=== PATIENT | male | born 1950 | race Caucasian/White ===

== ENCOUNTER 2018-09-19 18:21 | Inpatient (IN) | payer MEDICARE, OTHER ==
[~2018-09-19] VITALS: Ht 182.9 cm; Wt 119.7 kg
[2018-09-19] MEDS ORDERED: NS IV 1000 ML 1,000 ML IV STA ×2 (18:40→19:54)
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
[2018-09-19 18:48] LABS: HEMOGLOBIN 13.4 G/DL (13.3-17.7); WHITE BLOOD COUNT 10.1 10^3/uL (4.3-11.0)
[2018-09-19 19:06] LABS: INR 0.9 (0.8-1.4); PROTHROMBIN TIME PATIENT 12.3 SEC (12.2-14.7)
[2018-09-19 19:12] LABS: CHLORIDE 99 MMOL/L (98-107); POTASSIUM 4.5 MMOL/L (3.6-5.0); SODIUM 137 MMOL/L (135-145)
[2018-09-19 19:13] LABS: ALANINE AMINOTRANSFERASE 25 U/L (0-55); ALKALINE PHOSPHATASE 68 U/L (40-136); BILIRUBIN,TOTAL 0.4 MG/DL (0.1-1.0); BUN/CREATININE RATIO 17; CALCIUM 9.6 MG/DL (8.5-10.1); CARBON DIOXIDE 22 MMOL/L (21-32); CREATININE SERUM 1.45 MG/DL (0.60-1.30); GFR ESTIMATED 49; GLUCOSE 185 MG/DL (70-105); MAGNESIUM 1.9 MG/DL (1.8-2.4)
[2018-09-19 19:14] LABS: ALBUMIN 4.6 GM/DL (3.2-4.5); TOTAL PROTEIN 7.7 GM/DL (6.4-8.2)
--- NOTE | 2018-09-19 19:28 | Diagnostic Imaging Report ---
INDICATION: Syncope and irregular heart rate. COMPARISON: Prior examination from 09/19/2018. EXAMINATION: Single view of the chest was obtained. FINDINGS: There is cardiomegaly. The lungs are clear. There is no pleural effusion or pneumothorax. The mediastinum is unremarkable. IMPRESSION: 1. No acute cardiopulmonary abnormality. 2. Cardiomegaly. Dictated by: Dictated on workstation # [id number]
[2018-09-19] MEDS ORDERED: ASPIRIN 81 MG CHEW (CHILDREN'S ASA) PO STA (19:53)
--- NOTE | 2018-09-19 20:03 | NUR ---
pt states he took 650 mg of aspirin at around 1815, Dr Gong notified and baby aspirin dcd.
--- NOTE | 2018-09-19 20:22 | NUR ---
ems here, pt loaded on cot and secured.
--- OUTSIDE RECORDS SUMMARY | 2018-09-19 20:50 | XMS REPORT ---
Author Author [facility] Medical Staff Organization [place] [employer] [facility] Address [address], [place] [address] Phone [phone] Summary purpose TRANSITION OF CARE AUTO GENERATION Chief Complaint and Reason for Visit No authorized Reason for Visit (Admitting Diagnosis) is available for this visit . Problem list No authorized problems tracked for continuity of care are available for this vis it. Encounters No authorized problems tracked for encounter diagnoses are available for this vi sit. Medications No medications recorded for this patient visit Allergies, adverse reactions, alerts Allergen Category Ingredient Status Reaction Severity Onset No known drug allergies No known drug allergies No known drug allergies Confirmed or Verified Immunizations No immunizations recorded for this patient visit Relevant diagnostic tests and/or laboratory data No authorized results are available for this patient visit History of procedures Procedure Code Code Type Description Date Performed Performing Physician A0427 CPT-4 ALS1-EMERGENCY 07-05-2015 GONZÁLEZ CERVANTES A0425 CPT-4 GROUND MILEAGE 07-05-2015 GONZÁLEZ CERVANTES Functional status No functional or cognitive status observations are available for this visit. Vital signs No authorized vital signs are available for this visit. Social history No Social History or smoking status observations were recorded for this visit. ( Unknown if ever smoked.) Treatment Plan No treatment plan text is available for this visit. Hospital discharge instructions No discharge instruction text is available for this visit.
--- OUTSIDE RECORDS SUMMARY | 2018-09-19 20:50 | XMS REPORT ---
Author Author [facility] Medical Staff Organization [facility] [employer] [facility] Address [address], [place] [address] Phone [phone] Summary purpose TRANSITION OF CARE AUTO GENERATION [...] for this patient visit History of procedures No procedures recorded for this patient visit. Functional status No functional or cognitive status [...]
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
--- OUTSIDE RECORDS SUMMARY | 2018-09-19 20:51 | XMS REPORT ---
Author Author [facility] Medical Staff Organization [place] [employer] [facility] Address [address], [place] [address] Phone [phone] Summary purpose TRANSITION OF CARE AUTO GENERATION [...] Code Type Description Date Performed Performing Physician A0426 CPT-4 ALS 1 07-05-2015 GONZÁLEZ CERVANTES A0425 CPT-4 GROUND MILEAGE [...]
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
--- OUTSIDE RECORDS SUMMARY | 2018-09-19 20:51 | XMS REPORT ---
Author Author [facility] Medical Staff Organization [facility] [employer] [facility] Address [address], [place] [address] Phone [phone] Summary purpose TRANSITION OF CARE AUTO GENERATION [...]
--- OUTSIDE RECORDS SUMMARY | 2018-09-19 20:51 | XMS REPORT ---
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 Name Role Phone AMENA VIVAS Unavailable PROBLEMS Type Condition ICD9-CM Code GEJ19-KI Code Onset Dates Condition Status SNOMED Code Problem Type 2 diabetes, controlled, with renal manifestation E11.29 Apr, 0 255101817 Problem Refused influenza vaccine Z28.21 Dec, 0 499695950 Problem Essential hypertension, benign I10 0 0201481 Problem Severe obesity (BMI 35.0-39.9) with comorbidity E66.01 Apr, 0 874078093 Problem Refused pneumococcal vaccination Z28.Dec, 0 534281005 Problem Pure hypercholesterolemia E78.00 Feb, 0 569631000 Problem CKD (chronic kidney disease) stage 3, GFR 30-59 ml/min N18.3 Aug, 0 [id number] ALLERGIES No Information ENCOUNTERS Encounter Location Date Diagnosis [address] [address] Dec, [address] [address] Aug, Essential hypertension, benign I10 ; CKD (chronic kidney disease) stage 3, GFR 30-59 ml/min N18.3 ; Pure hypercholesterolemia E78.00 ; Severe obesity (BMI 35.0-39.9) with comorbidity E66.01 ; Type 2 diabetes, controlled, with renal manifestation E11.29 and Acute non-recurrent maxillary sinusitis J01.[address] [address] Aug, [address] [address] Aug, [address] [address] Aug, [facility] [address] [place] [address] Jul, [address] [address] Jul, [facility] [address] [facility] [id number] [address] Apr, [facility] [address] [facility] [id number], [place] [address] Apr, [facility] [address] [facility] [id number], [place] [address] Apr, [facility] [address] [facility] [id number], [place] [address] Oct, IMMUNIZATIONS No Known Immunizations SOCIAL HISTORY Never Assessed REASON FOR VISIT Rx refill PLAN OF CARE VITAL SIGNS MEDICATIONS Medication Instructions Dosage Frequency Start Date End Date Duration Status Tizanidine HCl 2 MG Orally at bedtime 1 tablet as needed Jul, 30 days Active RESULTS No Results PROCEDURES No Known procedures INSTRUCTIONS MEDICATIONS ADMINISTERED No Known Medications MEDICAL (GENERAL) HISTORY Type Description Date Medical History type II diabetes Medical History hypercholesterolemia Surgical History Jaw reconstruction 2015
--- OUTSIDE RECORDS SUMMARY | 2018-09-19 20:51 | XMS REPORT ---
Author Author AMENA VIVAS Organization [facility] Address [address] [place] [address] Care Team Providers Care Receiving Manager Name Role Phone AMENA VIVAS Unavailable PROBLEMS Type Condition ICD9-CM Code TRG33-CD Code Onset Dates Condition Status SNOMED Code Problem Refused pneumococcal vaccination V64.06 Dec, 0 402587670 Problem Type 2 diabetes, controlled, with renal manifestation 250.40 Apr, 0 836639688 Problem Refused influenza vaccine V64.06 Dec, 0 630633264 Problem Severe obesity (BMI 35.0-39.9) with comorbidity E66.01 Apr, 0 164755256 Problem Refused pneumococcal vaccination Z28.21 Dec, 0 382861439 Problem Pure hypercholesterolemia E78.00 Feb, 0 372211665 Problem Essential hypertension, benign 401.1 0 4072674 Problem Severe obesity (BMI 35.0-39.9) with comorbidity 278.01 Apr, 0 158554998 Problem Pure hypercholesterolemia 272.0 Feb, 0 180142137 Problem Type 2 diabetes, controlled, with renal manifestation E11.29 Apr, 0 203575785 Problem CKD (chronic kidney disease) stage 3, GFR 30-59 ml/min N18.3 Aug, 0 274170818 Problem Refused influenza vaccine Z28.21 Dec, 0 839928350 Problem Essential hypertension, benign I10 0 8709129 Problem CKD (chronic kidney disease) stage 3, GFR 30-59 ml/min 585.3 Aug, 0 890562534 ALLERGIES No Information ENCOUNTERS Encounter Location Date Diagnosis [facility] [address] [place] [address] Jul, [address] [address] Jul, [facility] [address] [place] [address] [id number] [address] Apr, [facility] [address] [facility] [id number], [place] [address] Apr, [facility] [address] [facility] [id number], [place] [address] Apr, [facility] [address] [facility] [id number], [place] [address] Oct, IMMUNIZATIONS No Known Immunizations SOCIAL HISTORY Never Assessed REASON FOR VISIT Medication changes PLAN OF CARE VITAL SIGNS MEDICATIONS Medication Instructions Dosage Frequency Start Date End Date Duration Status GlipiZIDE 5 MG Orally Once a day 1 tablet 24h Jul, 30 day(s) Active RESULTS No Results PROCEDURES No Known procedures INSTRUCTIONS MEDICATIONS ADMINISTERED No Known Medications
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
[2018-09-19] MEDS ORDERED: LIDOCAINE 1% INJ 20 ML 20 ML VIAL ONE (21:10)
[2018-09-19] MEDS ORDERED: fentaNYL INJECTION 100 MCG/2 ML AMP ONE (21:11)
[2018-09-19] MEDS ORDERED: HEParin (CATH LAB) 1,000 ML IV ONE (21:11)
[2018-09-19] MEDS ORDERED: MIDAZOLAM 5 MG/5 ML (VERSED) VIAL ONE (21:11)
[2018-09-19 21:15] VITALS: BP 194/72
--- NOTE | 2018-09-19 21:40 | NUR ---
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
[2018-09-19] MEDS ORDERED: NS IV 1000 ML 1,000 ML ONE (21:41)
--- NOTE | 2018-09-19 21:41 | Consultation-Cardiology ---
HPI-Cardiology Cardiology Consultation: Date of Consultation 09/19/18 Time Seen by a Provider: 21:05 Date of Admission Attending Physician Dariela Rios MD, MA FACP [facility] Admitting Physician Edwin Santos MD Consulting Physician DARIELA RIOS MD, MA, FACP, [facility], [facility], [facility] Physician requesting consult: Dr Mclaughlin HPI: Chief Complaint: CC: Syncope HPI 68 yo man with no prior cardiac history who had a brief syncopal episode yesterday and one today. Comes to the ER after today's episode. Found to be in CHB. No cp or palp or syncope Chronic exertional shortness of breath, mild to mod Review of Systems-Cardiology Review of Systems Constitutional: malaise, tiredness; No weight loss, No weight gain Eyes: No vision change Ears/Nose/Throat: No ear discharge, No nasal drainage, No recent hearing loss Respiratory: As described under HPI Cardiovascular: As described under HPI Gastrointestinal: No constipation, No diarrhea, No nausea, No vomiting Genitourinary: No dysuria, No hematuria, No urine frequency changes Musculoskeletal: back pain (chronic) Skin: No rash, No ulcerations Psychiatric/Neurological: No seizure, No focal weakness, No syncope Hematologic: No bleeding abnormalities WXK-Pfppiv-Ywaedy Hx Patient Social History Alcohol Use: Occasionally Uses Recreational Drug Use: No Smoking Status: Never a Smoker 2nd Hand Smoke Exposure: No Recent Foreign Travel: No Recent Infectious Disease Expo: No Hospitalization with Isolation: Denies Past Medical History PMH As described under Assessment. Allergies and Home Medications Allergies Coded Allergies: No Known Drug Allergies (Unverified , 09/19/18) Patient Home Medication List Home Medication List Reviewed: Yes Physical Exam-Cardiology Physical Exam Vital Signs/I&O 09/19/18 09/19/18 19:02 20:23 Temp 98.2 Pulse 39 33 Resp 18 22 B/P (MAP) 161/71 (101) 183/51 (95) Pulse Ox 97 95 O2 Delivery Room Air Room Air Capillary Refill : Less Than 3 Seconds Constitutional: AAO x 3, well-developed, well-nourished HEENT: EOMI, hearing is well preserved; No xanthelasmas are seen Neck: carotid pulses are 2 + bilaterally, with good upstrokes Respiratory: No accessory muscle use; other (good bilat air entry) Cardiovascular: regular rate-rhythm, S1 and S2, systolic murmur (faint JANAY at card base) Gastrointestinal: No tender; soft; No guarding, No rebound; audible bowel sounds Extremities: No clubbing, No cyanosis, No significant edema Neurologic/Psychiatric: oriented x 3, grossly intact, power is 5/5 both on sides Skin: No rash on exposed areas, No ulcerations on exposed areas Data Review Labs Laboratory Tests 09/19/18 18:35: White Blood Count 10.1, Red Blood Count 4.25L, Hemoglobin 13.4, Hematocrit 40, Mean Corpuscular Volume 95, Mean Corpuscular Hemoglobin 32, Mean Corpuscular Hemoglobin Concent 33, Red Cell Distribution Width 13.0, Platelet Count 309, Mean Platelet Volume 9.0, Prothrombin Time 12.3, INR Comment 0.9, Activated Partial Thromboplast Time 28, Sodium Level 137, Potassium Level 4.5, Chloride Level 99, Carbon Dioxide Level 22, Anion Gap 16H, Blood Urea Nitrogen 24H, Creatinine 1.45H, Estimat Glomerular Filtration Rate 49, BUN/Creatinine Ratio 17, Glucose Level 185H, Calcium Level 9.6, Corrected Calcium , Magnesium Level 1.9, Total Bilirubin 0.4, Aspartate Amino Transf (AST/SGOT) 21, Alanine Aminotransferase (ALT/SGPT) 25, Alkaline Phosphatase 68, Troponin T 27H, Total Protein 7.7, Albumin 4.6H 09/19/18 18:36: Glucometer 177H Laboratory Tests 09/19/18 18:35 A/P-Cardiology Assessment/Admission Diagnosis Syncope due to 3rd deg AVB DM II Obesity with BMI 37 Renal insuff: prob CKD 2-3 Discussion and Recomendations * Temp pacemaker tonight * Consider perm pacemaker tomorrow if heart block persists * I had a detailed discussion with him regarding rationale, procedure, risks, benefits and potential complications of pacemaker placement. He understands and provides informed consent DARIELA RIOS MD FACP [facility] September 19, 2018 21:41
[2018-09-19] MEDS ORDERED: ATROPINE INJECTION 1 MG/10 ML SYR (ABBOTT) ONE (21:42)
--- NOTE | 2018-09-19 21:48 | Cardiac Procedure Note-CS/ASA ---
Pre-Procedure Note Pre-Op Procedure Note H&P Reviewed The H&P was reviewed, patient examined and no changes noted. Date H&P Reviewed: September 19, 2018 Time H&P Reviewed: 21:48 Conscious Sedation Pre-Proced Time 21:48 ASA Score 3 For ASA 3 and 4: Consider anesthesia and medical clearance. Also, for patients with a history of failed moderate sedation consider anesthesia. Airway Lungs Heart ASA score ASA 1: a normal healthy patient ASA 2: a patient with a mild systemic disease (mid diabetes, controlled hypertension, obesity ASA 3: a patient with a severe systemic disease that limits activity (angina, COPD, prior Myocardial infarction) ASA 4: a patient with an incapacitating disease that is a constant threat to life (CHF, renal failure) ASA 5: a moribund patient not expected to survive 24 hrs. (ruptured aneurysm) ASA 6: a declared brain- patient whose organs are being harvested. For emergent operations, add the letter E after the classification Mallampati Classification Grade 3 Sedation Plan Analgesia, Amnesia, Plan communicated to team members, Discussed options with patient/fam, Discussed risks with patient/fam The patient is an appropriate candidate to undergo the planned procedure, sedation, and anesthesia. The patient immediately re-assessed prior to indication. DENNIS MONTOYA MD FACP FAC [facility] September 19, 2018 21:48
--- NOTE | 2018-09-19 22:40 | NUR ---
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 at bedside, pt and instructed on plan of care, importance of bedrest with right leg immobile, verbalized understanding. Temporary pacemaker heart rate set to 50, Output 1.0, Sensitivity 12.0.
[2018-09-19 22:45] VITALS: BP 147/69
[2018-09-19 23:00] VITALS: BP 139/80
[2018-09-19] MEDS: NS IV 1000 ML 1,000 ML IV SCH (23:13)
[2018-09-20] VITALS (23 sets, daily range): BP systolic 119–182; BP diastolic 55–109
[2018-09-20 03:54] LABS: BASOPHILS % (AUTO) 1 % (0-10); EOSINOPHILS # (AUTO) 0.2 10^3/uL (0.0-0.3); EOSINOPHILS % (AUTO) 3 % (0-10); HEMATOCRIT 36 % (40-54); LYMPHOCYTES # (AUTO) 1.4 X 10^3 (1.0-4.0); LYMPHOCYTES % (AUTO) 21 % (12-44); MEAN CORPUSCULAR HEMOGLOBIN 32 PG (25-34); MEAN CORPUSCULAR HGB CONC 33 G/DL (32-36); MEAN CORPUSCULAR VOLUME 95 FL (80-99); MEAN PLATELET VOLUME 9.2 FL (7.4-10.4); MONOCYTES # (AUTO) 0.5 X 10^3 (0.0-1.0); MONOCYTES % (AUTO) 7 % (0-12); NEUTROPHILS # (AUTO) 4.5 X 10^3 (1.8-7.8); NEUTROPHILS % (AUTO) 69 % (42-75); PLATELET COUNT 218 10^3/uL (130-400); RED CELL DISTRIBUTION WIDTH 13.4 % (10.0-14.5); WHITE BLOOD COUNT 6.6 10^3/uL (4.3-11.0)
[2018-09-20 04:18] LABS: ALBUMIN 3.5 GM/DL (3.2-4.5); BILIRUBIN,TOTAL 0.3 MG/DL (0.1-1.0); CALCIUM 8.4 MG/DL (8.5-10.1); CREATININE SERUM 1.31 MG/DL (0.60-1.30); MAGNESIUM 1.9 MG/DL (1.8-2.4); PHOSPHORUS 3.1 MG/DL (2.3-4.7); POTASSIUM 4.2 MMOL/L (3.6-5.0); TOTAL PROTEIN 6.1 GM/DL (6.4-8.2)
[2018-09-20] MEDS: NS IV 1000 ML 1,000 ML IV SCH ×3 (04:46→18:24)
--- NOTE | 2018-09-20 07:40 | OPERATIVE REPORT ---
DATE OF SERVICE: 09/19/2018 PREOPERATIVE DIAGNOSIS: Complete heart block. POSTOPERATIVE DIAGNOSIS: Complete heart block. PROCEDURE: Temporary pacemaker insertion. The patient is a 68-year-old man who presented with syncope and was found to have complete heart block. Temporary pacemaker insertion was carried out after having obtained an informed consent. He was brought to the cardiac catheterization laboratory. Right groin was prepared and draped in the usual sterile fashion. Lidocaine 1% was used for local anesthesia. Modified Seldinger technique was used to advance a 5-Dutch sheath into the right femoral vein. Under fluoroscopy, we advanced a balloon-tipped lead to the right ventricular apex. Good capture and sensing thresholds were obtained. Capture threshold was less than 1 volt. The pacemaker was set at 50 beats per minute with a voltage of 20 and sensing at 12 millivolts. The patient tolerated the procedure well. Job ID: [id number] DocumentID: [id number] Dictated Date: 09/19/2018 22:21:56 Physician Office Specialist Date: 09/20/2018 07:40:25 Dictated By: DENNIS MONTOYA MD, MA, FACP, FACC,
[2018-09-20] MEDS ORDERED: BACITRACIN INJECTION 50,000 UNIT, SODIUM CHLORIDE 0.9% IRRIGATIO 500 ML IR ONE ×2 (10:15)
[2018-09-20] MEDS ORDERED: LIDOCAINE 1% INJ 20 ML 20 ML VIAL ONE (10:18)
[2018-09-20] MEDS ORDERED: MIDAZOLAM 5 MG/5 ML (VERSED) VIAL ONE ×2 (10:19→11:56)
[2018-09-20] MEDS ORDERED: fentaNYL INJECTION 100 MCG/2 ML AMP ONE ×2 (10:19→11:56)
[2018-09-20] MEDS ORDERED: HEParin (CATH LAB) 1,000 ML IV ONE (10:20)
[2018-09-20] MEDS ORDERED: ceFAZolin INJECTION 1,000 MG ONE (10:27)
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
[2018-09-20] MEDS ORDERED: NS IV 1000 ML 1,000 ML ONE (11:15)
--- NOTE | 2018-09-20 11:38 | Cardiac Procedure Note-CS/ASA ---
Pre-Procedure Note Pre-Op Procedure Note H&P Reviewed The H&P was reviewed, patient examined and no changes noted. Date H&P Reviewed: September 20, 2018 Time H&P Reviewed: 11:37 Conscious Sedation Pre-Proced Time 11:37 ASA Score 3 For ASA 3 and 4: Consider anesthesia and medical clearance. Also, for patients with a history of failed moderate sedation consider anesthesia. Airway Lungs Heart ASA score ASA 1: a normal healthy patient ASA 2: a patient with a mild systemic disease (mid diabetes, controlled hypertension, obesity ASA 3: a patient with a severe systemic disease that limits activity (angina, COPD, prior Myocardial infarction) ASA 4: a patient with an incapacitating disease that is a constant threat to life (CHF, renal failure) ASA 5: a moribund patient not expected to survive 24 hrs. (ruptured aneurysm) ASA 6: a declared brain- patient whose organs are being harvested. For emergent operations, add the letter E after the classification Mallampati Classification Grade 3 Sedation Plan Analgesia, Amnesia, Plan communicated to team members, Discussed options with patient/fam, Discussed risks with patient/fam The patient is an appropriate candidate to undergo the planned procedure, sedation, and anesthesia. The patient immediately re-assessed prior to indication. DENNIS MONTOYA MD FACP FAC [facility] September 20, 2018 11:38
--- NOTE | 2018-09-20 12:10 | NUR ---
1105 PT TO HEART CENTER VIA BED ACCOMPANIED BY [employer] STAFF AND FAMILY.
[2018-09-20] MEDS ORDERED: TIZA2TAB3 PO (12:55)
[2018-09-20] MEDS ORDERED: RT-ALBUINH INH (12:55)
[2018-09-20] MEDS ORDERED: METF-397 PO (12:55)
[2018-09-20] MEDS ORDERED: METF-399 PO (12:55)
[2018-09-20] MEDS ORDERED: GLYB5TAB6 PO (12:55)
[2018-09-20] MEDS ORDERED: FISH1CAP15 PO (12:55)
[2018-09-20] MEDS ORDERED: [UNRECOGNIZED DRUG - CODE] PO (12:55)
[2018-09-20] MEDS ORDERED: PIOG45TA65 PO (12:55)
[2018-09-20] MEDS ORDERED: IBUP-1780 PO (12:55)
[2018-09-20] MEDS ORDERED: NEO/POLY/BAC (NEOSPORIN) OINT 15 GM TUBE ONE (13:13)
[2018-09-20] MEDS ORDERED: NS IV 1000 ML 1,000 ML IV SCH (13:39)
[2018-09-20] MEDS ORDERED: PATIENT MAY USE OWN MEDS, ALL PO SCH (13:45)
--- NOTE | 2018-09-20 14:15 | Diagnostic Imaging Report ---
INDICATION: Status post pacemaker placement. Comparison made with prior study from the previous day. FINDINGS: Dual-lead pacemaker is now present with leads overlying the right atrium and right ventricle. There is no evidence of postprocedural pneumothorax. The lungs remain clear. Heart size stable. There is no effusion. Mediastinal contours and heart size unchanged. IMPRESSION: 1. Status post placement of a left subclavian pacemaker device without pneumothorax. No acute cardiopulmonary process evident. Dictated by: Dictated on workstation # [id number]
[2018-09-20] MEDS: ceFAZolin INJECTION 1,000 MG in WATER (STERILE) FOR INJECTION 10 ML IV SCH ×2 (14:35→21:33)
--- NOTE | 2018-09-20 14:57 | NUR ---
1415 PT BACK TO ROOM ICU 11 VIA BED ACCOMPANIED BY CARDIAC CATH STAFF. DRESSING TO LEFT CHEST WALL D/I PERIPHERAL PULSES +/+. PT VOICES NO C/O OF PAIN, FAMILY AT BEDSIDE WILL CONTINUE TO MONITOR.
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
[2018-09-20] MEDS ORDERED: NON-FORMULARY MEDICATION 1 EA EA (Tizanidine HCl 2 MG) PO PRN (17:45)
[2018-09-20] MEDS ORDERED: IBUPROFEN 800 MG (MOTRIN) TAB PO PRN (17:45)
[2018-09-20] MEDS ORDERED: RT-ALBUTEROL SULF 2.5 MG/3 ML PRE-MIX VIAL INH PRN (17:45)
--- NOTE | 2018-09-20 18:48 | OPERATIVE REPORT ---
DATE OF SERVICE: 09/20/2018 PREOPERATIVE DIAGNOSIS: Syncope due to intermittent complete heart block. POSTOPERATIVE DIAGNOSIS: Syncope due to intermittent complete heart block. PROCEDURE PERFORMED: Dual chamber permanent pacemaker implantation. INDICATIONS: The patient is a 68-year-old man, who presented with syncope and was found to have intermittent complete heart block. He is not on any medications that would lower heart rate. He first received a temporary pacemaker and underwent permanent pacemaker implantation today after having provided informed consent. DESCRIPTION OF PROCEDURE: He was brought to the cardiac catheterization laboratory in a fasting state. The left prepectoral area was prepared and draped in the usual sterile fashion and 1% lidocaine was used for local anesthesia. Modified Seldinger technique was used to advance a guidewire into the left subclavian vein and the tip was placed in the right atrium. Sharp and blunt dissection was used to make a pacemaker pocket. The pocket was packed with gauze soaked in an antibiotic solution. The guidewire was used to advance a 9-Tanzanian sheath. Guidewire was obtained. The 9-Tanzanian sheath was used to advance a passive fixation ventricular lead the tip of which was placed at the right ventricular apex. The sheath was removed while retaining the wire in place. The retained wire was used to advance a 6-Tanzanian sheath. The wire was removed. The sheath was used to advance an active fixation atrial lead the tip of which was placed at the right atrial appendage. All lead manipulations were carried out under fluoroscopy. The sheath was removed. The leads were anchored to the prepectoral fascia using #0 Ethibond and sleeves. The antibiotic gauze was removed from the pocket. The pocket was thoroughly irrigated with an antibiotic solution. The leads were attached to a pacemaker. The leads are Medtronic, model 4074-58 for the ventricle with serial #[id number]. The atrial lead is Medtronic, model 4076-52 with serial #[id number]. The pacemaker is Medtronic, model W3DR01 with serial #[id number]. The pacemaker was placed in a Tyrx absorbable pouch. The pacemaker and the leads were placed in the pocket and the pocket was closed in 2 layers using 3-0 Vicryl. The atrial capture threshold is 0.3 volts at 0.5 milliseconds. The ventricular capture threshold is 0.3 volts at 0.5 milliseconds. R waves are measured at 7.9 millivolts. P waves are measured at 5.3 millivolts. Atrial lead impedance is 538 ohms. Ventricular lead impedance is 160 ohms. The pacemaker is set in the DDDR mode. The patient tolerated the procedure well. Job ID: [id number] DocumentID: [id number] Dictated Date: 09/20/2018 13:31:57 Compression Molding Machine Setter Date: 09/20/2018 18:47:36 Dictated By: DENNIS MONTOYA MD, MA, FACP, FACC,
[2018-09-20] MEDS ORDERED: METFORMIN HCL 1500 MG PO SCH (21:00)
[2018-09-20] MEDS ORDERED: metFORMIN 500 MG (GLUCOPHAGE) TAB PO SCH (21:00)
[2018-09-20] MEDS ORDERED: NON-FORMULARY MEDICATION 1 EA EA (Fish Oil/Dha/Epa (Fish Oil 1,200 mg Fish Oil) 1 EACH) PO SCH (21:00)
[2018-09-20] MEDS ORDERED: SIMvastatin 40 MG (ZOCOR) TAB PO SCH (21:00)
[2018-09-20] MEDS: OMEGA 3 (FISH OIL) 1000 MG CAP PO SCH (21:33)
[2018-09-21] VITALS: BP 160/86
[2018-09-21 03:39] LABS: BASOPHILS % (AUTO) 0 % (0-10); EOSINOPHILS # (AUTO) 0.2 10^3/uL (0.0-0.3); EOSINOPHILS % (AUTO) 2 % (0-10); HEMATOCRIT 38 % (40-54); HEMOGLOBIN 12.4 G/DL (13.3-17.7); LYMPHOCYTES # (AUTO) 1.1 X 10^3 (1.0-4.0); LYMPHOCYTES % (AUTO) 12 % (12-44); MEAN CORPUSCULAR HEMOGLOBIN 31 PG (25-34); MEAN CORPUSCULAR HGB CONC 33 G/DL (32-36); MEAN CORPUSCULAR VOLUME 95 FL (80-99); MEAN PLATELET VOLUME 9.2 FL (7.4-10.4); MONOCYTES # (AUTO) 0.6 X 10^3 (0.0-1.0); MONOCYTES % (AUTO) 6 % (0-12); NEUTROPHILS # (AUTO) 7.5 X 10^3 (1.8-7.8); NEUTROPHILS % (AUTO) 80 % (42-75); PLATELET COUNT 219 10^3/uL (130-400); RED CELL DISTRIBUTION WIDTH 13.6 % (10.0-14.5); WHITE BLOOD COUNT 9.4 10^3/uL (4.3-11.0)
[2018-09-21 04:00] VITALS: BP 180/100
[2018-09-21 04:01] LABS: ALBUMIN 3.7 GM/DL (3.2-4.5); BILIRUBIN,TOTAL 0.3 MG/DL (0.1-1.0); CALCIUM 8.7 MG/DL (8.5-10.1); CREATININE SERUM 1.27 MG/DL (0.60-1.30); MAGNESIUM 1.7 MG/DL (1.8-2.4); PHOSPHORUS 2.8 MG/DL (2.3-4.7); POTASSIUM 4.3 MMOL/L (3.6-5.0); TOTAL PROTEIN 6.4 GM/DL (6.4-8.2)
[2018-09-21 05:15] VITALS: BP 162/83
[2018-09-21] MEDS: NS IV 1000 ML 1,000 ML IV SCH (05:42)
[2018-09-21] MEDS: ceFAZolin INJECTION 1,000 MG in WATER (STERILE) FOR INJECTION 10 ML IV SCH (05:47)
[2018-09-21] MEDS ORDERED: PIOGLITAZONE 30MG (ACTOS) TAB PO SCH (07:00)
[2018-09-21 07:37] VITALS: BP 182/92
--- NOTE | 2018-09-21 08:40 | Diagnostic Imaging Report ---
INDICATION: Complete heart block. TECHNIQUE: Single view chest 3:54 AM. CORRELATION STUDY: 09/20/2018 FINDINGS: Left-sided pacemaker present. Heart size with left ventricular configuration. Vasculature overall relatively stable. Some new areas of atelectasis or less likely infiltrate to the right lung base medially. IMPRESSION: 1. Cardiac enlargement without failure. Minimal new atelectasis or less likely infiltrate at the right lung base medially. Dictated by: Dictated on workstation # [id number]
[2018-09-21] MEDS ORDERED: glyBURIDE 5 MG (MICRONASE) TAB PO SCH (09:00)
[2018-09-21] MEDS ORDERED: NON-FORMULARY MEDICATION 1 EA EA (Pioglitazone HCl 45 MG) PO SCH (09:00)
[2018-09-21] MEDS ORDERED: metFORMIN 500 MG (GLUCOPHAGE) TAB PO SCH (09:00)
[2018-09-21] MEDS ORDERED: NON-FORMULARY MEDICATION 1 EA EA (Metformin HCl 1,000 MG) PO SCH (09:00)
[2018-09-21] MEDS ORDERED: LOVASTATIN 80 MG PO SCH (09:00)
[2018-09-21] MEDS: OMEGA 3 (FISH OIL) 1000 MG CAP PO SCH (09:17)
[2018-09-21] MEDS ORDERED: METO100T6 PO (11:00)
[2018-09-21] MEDS ORDERED: LISI10TA2 PO (11:00)
--- NOTE | 2018-09-21 11:02 | Discharge Instructions ---
Discharge [facility] Discharge Medications New, Converted or Re-Newed RX: Transmitted to Pharmacy ([facility]) New Medications: Lisinopril (Lisinopril) 10 Mg Tablet 10 MG PO DAILY, #30 TAB 3 Refills Metoprolol Succinate (Toprol Xl) 100 Mg Tab.er.24h 100 MG PO DAILY, #30 TAB 3 Refills Continued Medications: Albuterol Sulfate (Proair Hfa) 1 Puff Puff 1 PUFF INH PRN PRN for SHORTNESS OF BREATH Fish Oil/Dha/Epa (Fish Oil 1,200 mg Fish Oil) 1 Each Capsule 1 EACH PO BID, CAP Glyburide (Glyburide) 5 Mg Tablet 5 MG PO DAILY Ibuprofen (Ibuprofen) 800 Mg Tablet 800 MG PO Q8H PRN for PAIN-MILD, TAB Lovastatin (Altoprev) 40 Mg Tab.er.24h 80 MG PO DAILY Metformin HCl (Metformin HCl) 1,000 Mg Tablet 1000 MG PO DAILY Metformin HCl (Metformin HCl) 500 Mg Tablet 1500 MG PO HS Pioglitazone HCl (Pioglitazone HCl) 45 Mg Tablet 45 MG PO DAILY Tizanidine HCl (Tizanidine HCl) 2 Mg Tablet 2 MG PO HS PRN for MUSCLE SPASMS Patient Instructions Goal/Follow Up Appt: Follow up with Dr. Santos on 09/25/18 at 10:15am Follow up with Dr. Rios as scheduled Activity & Diet Discharge Diet: ADA Diet, Cardiac Diet Orders-Post D/C & Referrals Pneu Vac Indicated: Yes PEGGY ELISE DO September 21, 2018 11:02
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
--- NOTE | 2018-09-21 11:20 | Progress Note-Cardiology ---
Cardiology SOAP Progress Note Subjective: No cp, palp, syncope, shortness of breath, or discomfort at site of device implantation Objective: I&O/Vital Signs 09/21/18 09/21/18 09/21/18 09/21/18 00:00 00:15 00:15 01:48 Temp 97.2 Pulse 79 75 Resp 21 B/P (MAP) 160/86 (110) Pulse Ox 95 O2 Delivery Room Air Room Air 09/21/18 09/21/18 09/21/18 09/21/18 04:00 05:15 07:00 07:37 Temp 97.2 Pulse 75 75 Resp 21 B/P (MAP) 180/100 (126) 162/83 (109) Pulse Ox 95 O2 Delivery Room Air Room Air 09/21/18 07:37 Temp 97.8 Pulse 73 Resp 23 B/P (MAP) 182/92 (122) O2 Delivery Room Air 09/21/18 00:00 Intake Total 190 ml Output Total 1400 ml Balance -1210 ml Weight (Pounds): 264 Weight (Ounces): 0.0 Weight (Calculated Kilograms): 119.057103 Device Insertion Site: without hematoma, no signs of inflammation, other (mild bruisin) Constitutional: AAO x 3, well-developed, well-nourished Respiratory: No accessory muscle use; other (good bilat air entry) Cardiovascular: regular rate-rhythm, S1 and S2, systolic murmur (faint JANAY at card base) Gastrointestional: No tender; soft; No guarding, No rebound; audible bowel sounds Extremities: No clubbing, No cyanosis, No significant edema Neurologic/Psychiatric: oriented x 3, grossly intact, power is 5/5 both on sides Skin: No rash on exposed areas, No ulcerations on exposed areas Results/Procedures: Labs Laboratory Tests 09/20/18 21:43: Glucometer 123H 09/21/18 03:32: White Blood Count 9.4, Red Blood Count 3.96L, Hemoglobin 12.4L, Hematocrit 38L, Mean Corpuscular Volume 95, Mean Corpuscular Hemoglobin 31, Mean Corpuscular Hemoglobin Concent 33, Red Cell Distribution Width 13.6, Platelet Count 219, Mean Platelet Volume 9.2, Neutrophils (%) (Auto) 80H, Lymphocytes (%) (Auto) 12, Monocytes (%) (Auto) 6, Eosinophils (%) (Auto) 2, Basophils (%) (Auto) 0, Neutrophils # (Auto) 7.5, Lymphocytes # (Auto) 1.1, Monocytes # (Auto) 0.6, Eosinophils # (Auto) 0.2, Basophils # (Auto) 0.0, Sodium Level 139, Potassium Level 4.3, Chloride Level 109H, Carbon Dioxide Level 19L, Anion Gap 11, Blood Urea Nitrogen 15, Creatinine 1.27, Estimat Glomerular Filtration Rate 57, BUN/Creatinine Ratio 12, Glucose Level 126H, Calcium Level 8.7, Corrected Calcium 8.9, Phosphorus Level 2.8, Magnesium Level 1.7L, Total Bilirubin 0.3, Aspartate Amino Transf (AST/SGOT) 15, Alanine Aminotransferase (ALT/SGPT) 20, Alkaline Phosphatase 57, Total Protein 6.4, Albumin 3.7 09/21/18 11:02: Glucometer 171H Laboratory Tests 09/19/18 18:35 09/20/18 03:40 09/21/18 03:32 A/P: Assessment: Syncope due to intermittent complete heart block and marked bradycardia, s/p permanent pacemaker implantation on 09/20/18 Hypertension DM II Obesity with BMI 37 Renal insuff: prob CKD 2 H/o peripheral neuropathy and restless leg syndrome Minimal troponin elevation (without any variation on successive measurements). This is likely related to patient's prolonged profound bradycardia (presented with completed heart block and had 2 syncopal episodes in 24 hours prior to presentation) Plan: * I discussed his case in detail with Dr Mclaughlin today * Add bb and amlodipine for bp * Continue Ceftin x 5 days * Post-op care discussed in detail with the patient and his and I answered his questions * Outpt f/u advised DENNIS MONTOYA MD [facility] September 21, 2018 11:20
[2018-09-21 11:45] VITALS: BP 182/92
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
== END 2018-09-21 11:45 | disposition home or self-care (01) | DRG 244 ==
LOC: ER FS 18:23 → CATH 20:24 → ICU 20:24 → CATH 21:11 → ICU 21:11 → CATH 09-21 11:45
PROVIDERS: ADMIT Family Medicine; ATTEND Family Medicine
PROC: 02HK3JZ Insertion of Pacemaker Lead into Right Ventricle, Percutaneous Approach (ICD-10-PCS; 2018-09-19)
PROC: 02HK3JZ Insertion of Pacemaker Lead into Right Ventricle, Percutaneous Approach (ICD-10-PCS; principal; 2018-09-20)
PROC: 02HK3JZ Insertion of Pacemaker Lead into Right Ventricle, Percutaneous Approach (ICD-10-PCS; 2018-09-20)
PROC: 0JH606Z Insertion of Pacemaker, Dual Chamber into Chest Subcutaneous Tissue and Fascia, Open Approach (ICD-10-PCS; 2018-09-20)
DX: I44.2 Atrioventricular block, complete (principal); I12.9 Hypertensive chronic kidney disease with stage 1 through stage 4 chronic kidney disease, or unspecified chronic kidney disease; N18.3 Chronic kidney disease, stage 3 (moderate); E11.42 Type 2 diabetes mellitus with diabetic polyneuropathy; Z79.84 Long term (current) use of oral hypoglycemic drugs; I45.10 Unspecified right bundle-branch block; E87.6 Hypokalemia; E66.9 Obesity, unspecified; Z68.35 Body mass index [BMI] 35.0-35.9, adult; G25.81 Restless legs syndrome
CPT/HCPCS: 33208; 33210; 36415; 71045; 71046; 80053; 82962; 83735; 84100; 84484; 85025; 85027; 85610; 85730; 87081; 93005; 96360

== ENCOUNTER → 2018-10-08 | Outpatient (CLI) | payer MEDICARE, OTHER ==
[~2018-10-08] MED LIST: FISH1CAP15 PO; GLYB5TAB6 PO; IBUP-1780 PO; LISI10TA2 PO; METF-397 PO; METF-399 PO; METO100T6 PO; PIOG45TA65 PO; RT-ALBUINH INH; TIZA2TAB3 PO; [UNRECOGNIZED DRUG - CODE] PO
[2018-10-08 11:47] LABS: POTASSIUM 4.6 MMOL/L (3.6-5.0)
[2018-10-08 11:48] LABS: CALCIUM 9.9 MG/DL (8.5-10.1); CREATININE SERUM 1.33 MG/DL (0.60-1.30)
== END ==
LOC: LAB FS 09:07
PROVIDERS: ATTEND Nurse Practitioner Family
DX: Z95.0 Presence of cardiac pacemaker (principal)
CPT/HCPCS: 36415; 80048

== ENCOUNTER → 2019-01-27 | Outpatient (CLI) | payer MEDICARE, OTHER ==
[~2019-01-27] VITALS: Ht 182 cm; Wt 123.0 kg
[~2019-01-27] MED LIST changes: +REGADENOSON 0.4 MG/5 ML SYR (LEXISCAN) IV ONE; -TIZA2TAB3 PO; +TIZA2TAB4 PO
[2019-01-27] MEDS: CATHETER FLUSH 10 ML SYR IV PRN ×2 (07:43→09:26)
[2019-01-27 09:20] VITALS: BP 182/80
[2019-01-27 09:21] VITALS: BP 182/80
[2019-01-27 09:28] VITALS: BP 190/86
--- NOTE | 2019-01-27 15:18 | STRESS TEST ---
DATE OF SERVICE: 01/27/2019 RESTING AND POST REGADENOSON TECHNETIUM-99M TETROFOSMIN SPECT CT IMAGING ORDERING PHYSICIAN: NIGHAT Rincon PRIMARY CARE PHYSICIAN: Edwin Santos MD. CLINICAL DIAGNOSIS: Dizziness, hypertension, hyperlipidemia, complete heart block, status cardiac pacemaker. Baseline images were carried out after injection of 10.72 mCi of technetium-99m Tetrofosmin. This was followed by 0.4 mg regadenoson and 29.8 mCi of technetium-99m Tetrofosmin for stress imaging. The electrocardiogram showed sinus rhythm with ventricular tracking from a dual chamber cardiac pacemaker. The electrocardiogram did not change significantly with the regadenoson infusion. The patient reported shortness of breath and stomach discomfort following regadenoson which resolved in a few minutes. Review of images at rest and following stress indicates an apical perfusion defect that is predominantly fixed. Gated images show apical akinesis. Left ventricular ejection fraction is calculated to be 38%. Left ventricular end diastolic volume is 164 mL. TID is absent (1.14). CONCLUSIONS: 1. Apical infarction without significant ischemia. 2. Apical akinesis. 3. Impairment of global left ventricular systolic function with ejection fraction 38%. 4. Moderate cardiomegaly. Job ID: [id number] DocumentID: [id number] Dictated Date: 01/27/2019 12:36:09 Benefits Representative Date: 01/27/2019 15:17:25 Dictated By: DENNIS MONTOYA MD, MA, FACP, FACC,
== END ==
LOC: CARD 07:27
PROVIDERS: ATTEND Nurse Practitioner Family
DX: I44.2 Atrioventricular block, complete (principal); I11.9 Hypertensive heart disease without heart failure; E78.5 Hyperlipidemia, unspecified; I25.2 Old myocardial infarction; Z95.0 Presence of cardiac pacemaker
CPT/HCPCS: 78452; 93017; 93306

== ENCOUNTER 2019-02-10 07:00 | Day surgery (SDC) | payer MEDICARE, OTHER ==
[2019-02-10] VITALS (12 sets, daily range): BP systolic 138–205; BP diastolic 67–86
[~2019-02-10] VITALS: Ht 183 cm; Wt 125.0 kg
[~2019-02-10 07:00] MED LIST changes: -REGADENOSON 0.4 MG/5 ML SYR (LEXISCAN) IV ONE
[2019-02-10] MEDS ORDERED: HEParin (CATH LAB) 2,000 ML IV ONE (07:08)
[2019-02-10] MEDS ORDERED: NS IV 1000 ML 1,000 ML ONE (07:08)
[2019-02-10] MEDS ORDERED: LIDOCAINE 1% INJ 20 ML 20 ML VIAL ONE (07:08)
[2019-02-10] MEDS ORDERED: NS IV 1000 ML 1,000 ML IV SCH ×2 (07:15→09:40)
[2019-02-10 07:37] LABS: HEMOGLOBIN 13.9 G/DL (13.3-17.7); MEAN PLATELET VOLUME 8.9 FL (7.4-10.4); RED CELL DISTRIBUTION WIDTH 13.4 % (10.0-14.5); WHITE BLOOD COUNT 7.1 10^3/uL (4.3-11.0)
[2019-02-10] MEDS ORDERED: LISI10TA2 PO (07:54)
[2019-02-10] MEDS ORDERED: METO-395 PO (07:54)
[2019-02-10] MEDS ORDERED: LOVA40TA2 PO (07:54)
[2019-02-10] MEDS ORDERED: FLUT9.9S NS (07:58)
[2019-02-10] MEDS ORDERED: CETI10TA20 PO (07:58)
[2019-02-10 08:00] LABS: ALANINE AMINOTRANSFERASE 19 U/L (0-55); ALBUMIN 4.6 GM/DL (3.2-4.5); ALKALINE PHOSPHATASE 65 U/L (40-136); BILIRUBIN,TOTAL 0.4 MG/DL (0.1-1.0); BUN/CREATININE RATIO 14; CARBON DIOXIDE 22 MMOL/L (21-32); CHLORIDE 106 MMOL/L (98-107); CHOLESTEROL 192 MG/DL (< 200); CREATININE SERUM 1.47 MG/DL (0.60-1.30); GFR ESTIMATED 48; GLUCOSE 96 MG/DL (70-105); HDL CHOLESTEROL 41 MG/DL (40-60); POTASSIUM 4.2 MMOL/L (3.6-5.0); SODIUM 142 MMOL/L (135-145); TRIGLYCERIDES 233 MG/DL (<150); VLDL CHOLESTEROL 47 MG/DL (5-40)
[2019-02-10] MEDS ORDERED: fentaNYL INJECTION 100 MCG/2 ML AMP ONE (09:23)
[2019-02-10] MEDS ORDERED: MIDAZOLAM 5 MG/5 ML (VERSED) VIAL ONE (09:23)
--- NOTE | 2019-02-10 09:41 | Cardiac Procedure Note-CS/ASA ---
Pre-Procedure Note Pre-Op Procedure Note H&P Reviewed The H&P was reviewed, patient examined and no changes noted. Date H&P Reviewed: Feb 10, 2019 Time H&P Reviewed: 09:41 Conscious Sedation Pre-Proced Time 09:41 ASA Score 3 For ASA 3 and 4: Consider anesthesia and medical clearance. Also, for patients with a history of failed moderate sedation consider anesthesia. Airway Lungs Heart ASA score ASA 1: a normal healthy patient ASA 2: a patient with a mild systemic disease (mid diabetes, controlled hypertension, obesity ASA 3: a patient with a severe systemic disease that limits activity (angina, COPD, prior Myocardial infarction) ASA 4: a patient with an incapacitating disease that is a constant threat to life (CHF, renal failure) ASA 5: a moribund patient not expected to survive 24 hrs. (ruptured aneurysm) ASA 6: a declared brain- patient whose organs are being harvested. For emergent operations, add the letter E after the classification Mallampati Classification Grade 3 Sedation Plan Analgesia, Amnesia, Plan communicated to team members, Discussed options with patient/fam, Discussed risks with patient/fam The patient is an appropriate candidate to undergo the planned procedure, sedation, and anesthesia. The patient immediately re-assessed prior to indication. DENNIS MONTOYA MD FACP FAC CCDS Feb 10, 2019 09:41
[2019-02-10] MEDS ORDERED: PATIENT MAY USE OWN MEDS, ALL PO SCH (09:45)
--- NOTE | 2019-02-10 10:25 | Discharge Inst-Post CATH ---
Discharge Inst-CATH/EP Post Cardiac Cath/EP D/C Inst Follow Up/Plan F/u with Dr Rios in 1-2 weeks ACTIVITY * Go Home directly and rest. * Limit activity of the leg (or wrist if it was used) for 7 days including aerobics, swimming, jogging, bicycling, etc. * Restrict stair-climbing for 7 days if possible, if not, climb up with your non-cath leg, then bring together on the same step. * Avoid lifting, pushing, pulling or excessive movement of the affected extremity for 7 days. * Customary sexual activity may be resumed after 2 days-use caution not to use a position that strains or causes pain to the affected extremity. * No driving for 24 hours. * NO SMOKING. * Avoid straining for bowel movements for 7 days. * Gentle walking on level ground is allowed. * Returning to work will depend on the type of procedure and the results. Your doctor will discuss this with you. CALL YOUR DOCTOR FOR ANY OF THE FOLLOWING: *If bleeding from the puncture site occurs- Apply gentle pressure to site with clean cloth and call your doctor or EMS. * If a knot or lump forms under the skin, increases in size, or causes pain. * If bruising appears to be worsening or moving further down your leg instead of disappearing. * Temperature above 101 F. CARE OF YOUR GROIN INCISION; * Bruising or purple discoloration of the skin near the puncture site is common. * You may shower only, no bathtub bathing for 5 days. Be careful to avoid slipping as your leg may feel stiff. * If a closure device was used on your femoral artery, please see the attached guide regarding care of the device and your leg. * Leave dressing on FOR 24 hours. CARE OF YOUR WRIST INCISION; * Bruising or purple discoloration of the skin near the puncture site is common. * You may shower. * DO NOT submerge wrist. * Leave dressing on FOR 24 hours. DENNIS RIOS MD [facility] CCDS Feb 10, 2019 10:24
--- NOTE | 2019-02-10 10:26 | Discharge Inst-Cardiology ---
Discharge Inst-Cardiac Discharge Medications Continued Medications: Albuterol Sulfate (Proair Hfa) 1 Puff Puff 2 PUFF INH Q6H PRN for SHORTNESS OF BREATH Cetirizine HCl (Zyrtec) 10 Mg Tablet 10 MG PO DAILY, TAB Fluticasone Propionate (Flonase Allergy Relief) 9.9 Ml [place].susp 1 SPRAY NS BID, EACH Glyburide (Glyburide) 5 Mg Tablet 5 MG PO DAILY LAST FILLED 12-29-2018 #6 AND 11-30-2018 #28 Lisinopril (Lisinopril) 10 Mg Tablet 10 MG PO 1800, TAB Lovastatin (Lovastatin) 40 Mg Tablet 40 MG PO BID, TAB Metoprolol Succinate (Metoprolol Succinate) 100 Mg Tab.er.24h 100 MG PO DAILY, TAB Pioglitazone HCl (Pioglitazone HCl) 45 Mg Tablet 45 MG PO DAILY Tizanidine HCl (Tizanidine HCl) 2 Mg Tablet 2 MG PO HS PRN for MUSCLE SPASMS Discontinued Medications: Metformin HCl (Metformin HCl) 1,000 Mg Tablet 1000 MG PO DAILY Metformin HCl (Metformin HCl) 500 Mg Tablet 1500 MG PO HS Patient Instructions Patient Instructions: Hold METFORMIN until the morning of 02/13/19; then resume previous home dose Orders-Post D/C & Referrals Pneu Vac Indicated: Yes DENNIS MONTOYA MD FACP FACC CCDS Feb 10, 2019 10:26
--- NOTE | 2019-02-10 13:45 | CARDIAC CATHETERIZATION ---
DATE OF SERVICE: 02/10/2019 The patient is a 68-year-old man who has multiple coronary artery disease risk factors and who has had the symptoms of dizziness and syncope. A recent myocardial perfusion imaging study was suggestive of apical infarction with apical hypokinesis and impairment of left ventricular systolic function. Echocardiography was also suggestive of apical hypokinesis. Ejection fraction on myocardial perfusion imaging was 38%. Ejection fraction on echocardiography was 50%. Given these data and his history of multiple coronary artery disease risk factors, cardiac catheterization was carried out after having obtained an informed consent. He was also made aware of his additional risk of contrast nephropathy, given his baseline renal insufficiency (chronic kidney disease stage II to III). He understood and provided informed consent. Vigorous perioperative hydration was carried out before, during, and after the procedure to reduce risk of contrast nephropathy. DESCRIPTION OF PROCEDURE: He was brought to the cardiac catheterization laboratory. Right groin was prepared and draped in usual sterile fashion. Lidocaine 1% was used for local anesthesia. Modified Seldinger technique was used to advance a 5-Nepalese sheath in right femoral artery. A 5-Nepalese JL4 catheter for left coronary angiography. A 5-Nepalese JR4 catheter for right coronary angiography. A 5-Nepalese pigtail catheter was used for left heart catheterization, left ventricular angiography. At the end of the procedure, angiography of the right femoral artery was carried out through the sheath. Mynx was used to achieve hemostasis. He tolerated the procedure well. HEMODYNAMICS: Left ventricular end-diastolic pressure following coronary angiography was 12 mmHg. There is no significant pressure gradient on pullback across the aortic valve. Ascending aortic pressure was 141/67 with a mean of 61 mmHg. CORONARY ANGIOGRAPHY: Heavy coronary calcification is seen involving the proximal coronary vessels. Left main coronary artery does not exhibit significant obstructive disease. Left anterior descending artery has diffuse moderate disease with stenoses of up to 50%. The first diagonal branch has 70% ostial and proximal stenosis. This is a small caliber vessel and does not appear amenable to intervention. Left circumflex artery has diffuse mild disease. Right coronary artery is dominant. It has approximately 60% ostial stenosis. It has diffuse moderate disease with stenosis up to 50% in its mid and distal portions. LEFT VENTRICULAR ANGIOGRAPHY: Left ventricular angiography was carried out in the right anterior oblique and the left anterior oblique projections. Global left ventricular systolic function appears to be at the lower end of normal. Ejection fraction was approximately 50%. There did not appear to be distinct regional wall motion abnormality. CONCLUSIONS: 1. Coronary artery disease, moderate, diffuse, involving all coronary vessels. A small caliber first diagonal branch of left anterior descending artery has approximately 70% ostial and proximal stenosis and the proximal right coronary artery has approximately 60% ostial stenosis. The rest of the coronary vessels have up to 50% stenoses. 2. Normal left ventricular end-diastolic pressure. 3. Global left ventricular systolic function at the lower limit of normal with an ejection fraction approximately 50%. DISCUSSION AND RECOMMENDATIONS: Based on results of the study, it appears appropriate to continue a conservative approach. Risk factor modification has been reviewed. Close outpatient followup is advised. Job ID: [id number] DocumentID: [id number] Dictated Date: 02/10/2019 10:12:40 Director Of Bands Date: 02/10/2019 13:44:49 Dictated By: DENNIS MONTOYA MD, MA, FACP, FACC,
== END 2019-02-10 14:30 | disposition home or self-care (01) ==
LOC: CATH 07:00 → SDC 10:35 → CATH 14:30
PROVIDERS: ATTEND Internal Medicine Cardiovascular Disease
DX: I25.10 Atherosclerotic heart disease of native coronary artery without angina pectoris (principal); I44.2 Atrioventricular block, complete; E11.9 Type 2 diabetes mellitus without complications; N25.9 Disorder resulting from impaired renal tubular function, unspecified; G25.81 Restless legs syndrome; E78.5 Hyperlipidemia, unspecified; E66.9 Obesity, unspecified; Z68.37 Body mass index [BMI] 37.0-37.9, adult; Z79.52 Long term (current) use of systemic steroids; Z79.84 Long term (current) use of oral hypoglycemic drugs; Z79.899 Other long term (current) drug therapy; Z83.3 Family history of diabetes mellitus; Z87.891 Personal history of nicotine dependence
CPT/HCPCS: 36415; 80053; 80061; 85027; 85610; 85730; 87081; 93458

== ENCOUNTER 2019-02-24 12:45 | Outpatient (CLI) | payer MEDICARE, OTHER ==
[~2019-02-24 12:45] MED LIST changes: +CETI10TA20 PO; +FLUT9.9S NS; +LOVA40TA2 PO; +METO-395 PO
== END 2019-02-24 13:17 | disposition home or self-care (01) ==
LOC: SLEEP 12:45
PROVIDERS: ATTEND Nurse Practitioner
DX: G47.33 Obstructive sleep apnea (adult) (pediatric) (principal); I10 Essential (primary) hypertension; I48.91 Unspecified atrial fibrillation

== ENCOUNTER → 2021-08-29 | Outpatient (CLI) | payer MEDICARE, OTHER ==
[~2021-08-29] MED LIST changes: +CATHETER FLUSH 10 ML SYR IVP PRN; -CETI10TA20 PO; +CETI10TA49 PO; +GLBR5T PO; -GLYB5TAB6 PO; -LISI10TA2 PO; +LISI10TA25 PO; -METO-395 PO; +MTP100TCR PO; +REGADENOSON 0.4 MG/5 ML SYR (LEXISCAN) IV ONE; +TIZA-169 PO; -TIZA2TAB4 PO
--- NOTE | 2021-08-30 15:36 | STRESS TEST ---
DATE OF SERVICE: 08/29/2021 RESTING AND POST REGADENOSON TECHNETIUM-99M TETROFOSMIN SPECT CT IMAGING ORDERING PHYSICIAN: Dr. Rios. PRIMARY PHYSICIAN: Dr. Santos. CLINICAL DIAGNOSIS: Coronary artery disease. Baseline images were carried out after injection of 10.23 mCi of technetium-99m Tetrofosmin. This was followed by 0.4 mg Regadenoson and 29.7 mCi of technetium-99m Tetrofosmin for stress imaging. The electrocardiogram showed sinus rhythm with a paced ventricular rhythm. The electrocardiogram did not change significantly with the Regadenoson infusion. The patient tolerated the procedure well. Review of images at rest and following stress indicates a small apical perfusion defect that is fixed. Gated images show well preserved global left ventricular systolic function. There appears to be localized apical akinesis. Left ventricular ejection fraction is calculated to be 48%. Left ventricular end-diastolic volume is 115 mL. CONCLUSIONS: 1. Mild cardiomegaly. 2. The study is suggestive of a small apical infarction without ischemia. 3. Localized apical akinesis. 4. Well preserved global left ventricular systolic function with a calculated ejection fraction of 48%. Job ID: [id number] DocumentID: [id number] Dictated Date: 08/30/2021 13:11:17 Fur Finisher Date: 08/30/2021 15:34:51 Dictated By: DENNIS RIOS MD, MA, FACP, FACC, MTDD
== END ==
LOC: CARD 10:30
PROVIDERS: ATTEND Internal Medicine Cardiovascular Disease
DX: I25.10 Atherosclerotic heart disease of native coronary artery without angina pectoris (principal); I51.7 Cardiomegaly
CPT/HCPCS: 78452; 93017; 93306; A9502